=== PATIENT | female | born 1995 | race Two or more races ===

== ENCOUNTER → 2025-04-04 11:42 | Outpatient (BNVA) | payer OTHER, SELFPAY | DX: F31.4 Bipolar disorder, current episode depressed, severe, without psychotic features (principal); F43.12 Post-traumatic stress disorder, chronic; Z79.899 Other long term (current) drug therapy | CPT/HCPCS: 80061; 83036 ==

== ENCOUNTER → 2025-05-15 10:37 | Outpatient (BNVA) | payer OTHER, SELFPAY ==
[2025-04-09 14:35] VITALS: BP 124/82; BMI 33.9
== END ==
DX: Z79.899 Other long term (current) drug therapy (principal)
CPT/HCPCS: 83036